=== PATIENT | male | born 1970 | race Caucasian/White ===

== ENCOUNTER 2017-02-14 10:55 | Emergency (ER) | payer SELFPAY ==
[2017-02-14] MEDS ORDERED: Diphtheria,Pertussis(Acell),Tetanus Vaccine 0.5 ML Syringe IM ONE (11:07)
[2017-02-14] MEDS ORDERED: Lidocaine 1% 20 ML MDV INJECT ONE (11:07)
--- NOTE | 2017-02-14 11:41 | EDM.PDOC ---
ED HPI GENERAL MEDICAL PROBLEM - General Chief Complaint: Laceration Stated Complaint: RIGHT POINTER FINGER CUT Time Seen by Provider: 02/14/17 11:01 Source of Information: Reports: Patient History Limitations: Reports: No Limitations - History of Present Illness INITIAL COMMENTS - FREE TEXT/NARRATIVE: HISTORY AND PHYSICAL: []46-year-old male presenting with injury to the index finger on his right hand History of Present Illness: []Patient was putting a trailer on the hitch in his hand was caught between this causing a laceration Last tetanus vaccine was unknown Review of Systems: As per history of present illness and below otherwise all systems reviewed and negative. Past medical history: As per history of present illness and as reviewed below otherwise noncontributory. Surgical history: As per history of present illness and as reviewed below otherwise noncontributory. Social history: No reported history of drug or alcohol abuse. Family history: As per history of present illness and as reviewed below otherwise noncontributory. Physical exam: Alert and oriented man who answers questions appropriately in full sentences without any shortness of breath he is nontoxic in appearance. HEENT: Atraumatic, normocehpalic, pupils reactive, negative for conjunctival pallor or scleral icterus, mucous membranes moist, throat clear, neck supple, nontender, trachea midline. Lungs: Clear to auscultation, breath sounds equal bilaterally, chest non tender. Heart: S1S2, regular, negative for clicks, rubs, or JVD. Abdomen: Soft, nondistended, nontender. Negative for masses or hepatossplenmegaly. Negative for costovertebral tenderness. Pelvis: Stable nontender. Genitourinary: Deferred. Rectal: Deferred Extremities:A traumatic injury caused a flap lateral portion of his finger to across to the medial portion laceration is 6 cm in length, negative for cords or calf pain. Neurovascular unremarkable. Neuro: Awake, alert, oriented. Cranial nerves II through XII unremarkable. Cerebellum unremarkable. Motor and sensory unremarkable throughout. Exam nonfocal. X-ray did not identify any fractures on this injury. Patient was informed of no fractures and follow-up with Dr. Carmen Li Diagnostics: [X-ray finger] Therapeutics: [Sutures] Impression: [Laceration with repair] Plan: [Follow-up with Dr. Carmen Li [facility] - Plastic Surgery [address] [place] [address], [address] [place] [address] ] Definitive disposition and diagnosis as appropriate pending reevaluation and review of above. right index finger Pain Score (Numeric/FACES): 6 - Related Data Allergies Allergy/AdvReac Type Severity Reaction Status Date / Time No Known Allergies Allergy Verified 02/14/17 11:03 Home Meds: Home Meds . [No Known Home Meds] 02/14/17 [History] Past Medical History - Past Health History Medical/Surgical History: Denies Medical/Surgical History Social & Family History - Family History Family Medical History: Noncontributory - Tobacco Use Smoking Status *Q: Current Every Day Smoker Years of Tobacco use: 20 Packs/Tins Daily: 1 - Caffeine Use Caffeine Use: Reports: Coffee - Recreational Drug Use Recreational Drug Use: Yes Drug Use in Last 12 Months: Yes Recreational Drug Type: Reports: Marijuana/Hashish ED ROS GENERAL - Review of Systems Review Of Systems: ROS reveals no pertinent complaints other than HPI. ED EXAM, SKIN/RASH Exam: See Below (See dictation) ED SKIN PROCEDURES - Laceration/Wound Repair Right Anterior Medial Finger Lac/Wound length In cm: 6 Appearance: Muscle Distal NVT: Neuro & Vascular Intact Anesthetic Type: Digital Local Anesthesia - Lidocaine (Xylocaine): 1% Plain Local Anesthetic Volume: 5cc Skin Prep: Chlorhexidine (Hibiciens), Saline Exploration/Debridement/Repair: Wound Explored, In a Bloodless Field, Explored to Base Suture Size: 4-0 # of Sutures: 14 Suture Type: Nylon, Interrupted, Simple Drain Placement: No Sterile Dressing Applied: Nurse Tetanus Status Addressed: Yes Complications: No Course - Vital Signs Last Recorded V/S: Last Vital Signs Temp 36.1 C 02/14/17 10:55 Pulse 105 H 02/14/17 10:55 Resp 18 02/14/17 10:55 BP 155/99 H 02/14/17 10:55 Pulse Ox 100 02/14/17 10:55 - Orders/Labs/Meds Orders: Active Orders 24 hr Category Date Time Status Vaccines to be Administered [RC] PER UNIT ROUTINE Care 02/14/17 11:07 Active Meds: Medications Discontinued Medications Generic Name Dose Route Start Last Admin Trade Name Felipa PRN Reason Stop Dose Admin Diphtheria/Tetanus/Acell Pertussis 0.5 ml 02/14/17 11:07 02/14/17 11:13 Adacel IM 02/14/17 11:08 0.5 ml .ONCE ONE Administration Lidocaine HCl 20 ml 02/14/17 11:07 02/14/17 11:13 Xylocaine 1% INJECT 02/14/17 11:08 20 ml ONETIME ONE Administration Departure - Departure Time of Disposition: 12:18 Disposition: Home, Self-Care 01 Condition: Good Clinical Impression: Laceration - Discharge Information Instructions: Laceration Care, Adult, [id number], Stitches, Derby, or Adhesive Wound Closure, [id number] Referrals: Enriqueta Li MD [Physician] - Forms: ED Department Discharge Additional Instructions: The following information is given to patients seen in the emergency department who are being discharged to home. This information is to outline your options for follow-up care. We provide all patients seen in our emergency department with a follow-up referral. The need for follow-up, as well as the timing and circumstances, are variable depending upon the specifics of your emergency department visit. If you don't have a primary care physician on staff, we will provide you with a referral. We always advise you to contact your personal physician following an emergency department visit to inform them of the circumstance of the visit and for follow-up with them and/or the need for any referrals to a consulting specialist. The emergency department will also refer you to a specialist when appropriate. This referral assures that you have the opportunity for followup care with a specialist. All of these measure are taken in an effort to provide you with optimal care, which includes your followup. Under all circumstances we always encourage you to contact your private physician who remains a resource for coordinating your care. When calling for followup care, please make the office aware that this follow-up is from your recent emergency room visit. If for any reason you are refused follow-up, please contact the [facility] emergency department at and asked to speak to the emergency department charge nurse. Follow-up with Dr. Carmen Li [facility] Specialty Care - Plastic Surgery Professional Building [address] [place] [address], [address] [place] [address] Keep area clean and dry Sutures out in 10 days - My Orders Last 24 Hours: My Active Orders 02/14/17 11:07 Vaccines to be Administered [RC] PER UNIT ROUTINE - Assessment/Plan Last 24 Hours: My Active Orders 02/14/17 11:07 Vaccines to be Administered [RC] PER UNIT ROUTINE
--- NOTE | 2017-02-14 12:07 | CR ---
EXAMINATION: Right hand, second digit HISTORY: Compression injury COMPARISON: None TECHNIQUE: 3 views FINDINGS/IMPRESSION: There is no acute osseous abnormality, dislocation, or fracture. There is howeve r moderate soft tissue swelling noted involving the second digit without an underlying foreign body o r subcutaneous gas.
[2017-02-14 12:36] VITALS: BP 136/83
== END 2017-02-14 12:36 | disposition home or self-care (01) ==
LOC: MW.ED 10:55
DX: S61.210A Laceration without foreign body of right index finger without damage to nail, initial encounter (principal); F17.210 Nicotine dependence, cigarettes, uncomplicated; Z23 Encounter for immunization; W23.0XXA Caught, crushed, jammed, or pinched between moving objects, initial encounter
CPT/HCPCS: 12002; 73140-26-F6; 73140-F6; 90471; 90715; 99282; 99283-25